=== PATIENT | female | born 1960 ===

== ENCOUNTER 2017-06-22 13:32 | Inpatient (IN) ==
[2017-06-22] MEDS ORDERED: VANCOMYCIN INJ 1,000 MG in SODIUM CHLORIDE 0.9% 250 ML IV STA (15:31)
[2017-06-22] MEDS ORDERED: PIPERACILLIN/TAZOBACTAM 4,500 MG in SODIUM CHLORIDE 0.9% 100 ML IV STA (15:31)
[2017-06-22] MEDS ORDERED: SODIUM CHLORIDE 0.9% 1,000 ML IV STA (15:34)
[2017-06-22 16:01] LABS: Basophils % 0.3 % (0.0-0.8); Eosinophils # 0.2 10*3/uL (0.0-0.87); Eosinophils % 2.6 % (0.00-10.9); Hematocrit 35.5 VOL% (35.7-47.0); Hemoglobin 12.7 GM/DL (12.0-16.0); Immature Granulocytes % 0.4 %; Immature Granulocytes Absolute 0.03 #; Lymphocytes # 1.8 10*3/uL (1.4-4.0); Lymphocytes % 22.7 % (21.3-54.2); Mean Corpuscular HGB Conc 35.8 GM/DL (32-36); Mean Corpuscular Hemoglobin 32 PG (27-34); Mean Corpuscular Volume 90.3 FL (87-102); Mean Platelet Volume 9.5 FL (9.6-12.0); Monocytes # 0.7 10*3/uL (0.11-0.8); Monocytes % 8.3 % (1.7-12.7); Neutrophils # 5.2 10*3/uL (1.4-7.4); Neutrophils % 65.7 % (38.7-73.9); Platelet Count 293 T/CUMM (130-400); Red Blood Count 3.93 MC/CUMM (3.8-5.5); Red Cell Distribution Width 11.8 % (9.3-17.3)
[2017-06-22] MEDS ORDERED: VANCOMYCIN 1,000 MG VIAL ONE (16:11)
[2017-06-22] MEDS ORDERED: PIPERACILLIN/TAZOBACTAM 3,375 MG in SODIUM CHLORIDE 0.9% 100 ML IV STA (16:14)
[2017-06-22 16:16] LABS: Calcium 8.9 MG/DL (8.5-10.1); Osmolality,Calculated 275.8 MOS/KG (273-304); Potassium 3.8 MMOL/L (3.5-5.1)
[2017-06-22] MEDS ORDERED: SODIUM CHLORIDE 0.9% 100 ML IV ONE (16:29)
[2017-06-22] MEDS ORDERED: PIPERACILLIN/TAZOBACTAM 3,375 MG VIAL IV ONE (16:29)
[2017-06-22] MEDS ORDERED: ONDANSETRON 4 MG/2 ML VIAL IV PRN (18:29)
[2017-06-22] MEDS ORDERED: GLUCAGON 1 MG VIAL IM PRN (18:29)
[2017-06-22] MEDS ORDERED: DOCUSATE SODIUM 100 MG CAPSULE PO PRN (18:29)
[2017-06-22] MEDS ORDERED: DEXTROSE 50% 25 GM/50 ML VIAL IV PRN (18:29)
[2017-06-22] MEDS: amLODIPine 5 MG TABLET PO SCH (22:30)
[2017-06-22] MEDS: FERROUS SULFATE 325 MG TABLET PO SCH (22:30)
[2017-06-22] MEDS: INSULIN REGULAR 100 UNIT/ML SUBCUT SCH (22:34)
[2017-06-22] MEDS: SODIUM CHLORIDE 0.9% 1,000 ML IV SCH (22:36)
[2017-06-22] MEDS: hydrALAZINE 25 MG TABLET PO SCH (22:36)
[2017-06-22] MEDS: SIMVASTATIN 20 MG TABLET PO SCH (22:36)
[2017-06-22] MEDS: DICLOFENAC 0.1% BOTH EYES SCH (22:41)
[2017-06-23] MEDS: PIPERACILLIN/TAZOBACTAM 3,375 MG in SODIUM CHLORIDE 0.9% 100 ML IV SCH ×3 (02:16→17:09)
[2017-06-23 05:29] LABS: Basophils % 0.3 % (0.0-0.8); Eosinophils # 0.2 10*3/uL (0.0-0.87); Eosinophils % 3.3 % (0.00-10.9); Hematocrit 30.7 VOL% (35.7-47.0); Immature Granulocytes % 0.4 %; Immature Granulocytes Absolute 0.03 #; Lymphocytes # 2.2 10*3/uL (1.4-4.0); Lymphocytes % 31.9 % (21.3-54.2); Mean Corpuscular HGB Conc 32.9 GM/DL (32-36); Mean Corpuscular Hemoglobin 32 PG (27-34); Mean Corpuscular Volume 95.9 FL (87-102); Mean Platelet Volume 9.8 FL (9.6-12.0); Monocytes # 0.6 10*3/uL (0.11-0.8); Monocytes % 8.5 % (1.7-12.7); Neutrophils # 3.7 10*3/uL (1.4-7.4); Neutrophils % 55.6 % (38.7-73.9); Platelet Count 242 T/CUMM (130-400); White Blood Count 6.7 T/CUMM (4-12)
[2017-06-23 06:13] LABS: Hemoglobin 10.1 GM/DL (12.0-16.0)
[2017-06-23 06:16] LABS: Calcium 8.4 MG/DL (8.5-10.1); Osmolality,Calculated 295.5 MOS/KG (273-304); Potassium 4.2 MMOL/L (3.5-5.1)
[2017-06-23 06:32] LABS: Risk Ratio 5.97; VLDL CHOLESTEROL 38.8 MG/DL
[2017-06-23] MEDS ORDERED: ERYTHROMYCIN ETHYLSUCCINATE PO SCH ×2 (07:30)
[2017-06-23] MEDS ORDERED: ROPIVACAINE 0.5% 30 ML VIAL ONE (08:03)
[2017-06-23] MEDS ORDERED: MIDAZOLAM 2 MG/2 ML VIAL ONE (08:45)
[2017-06-23] MEDS ORDERED: PROPOFOL 200 MG/20 ML VIAL IV ONE (08:45)
[2017-06-23] MEDS ORDERED: fentaNYL 100 MCG/2 ML VIAL ONE (08:45)
[2017-06-23] MEDS: MONTELUKAST 10 MG TABLET PO SCH (09:43)
[2017-06-23] MEDS: DICLOFENAC 0.1% BOTH EYES SCH ×4 (09:43→22:12)
[2017-06-23] MEDS: FLUTICASONE 50 MCG NASAL SPRAY 16 GM BOTTLE BOTH NARES SCH (09:43)
[2017-06-23] MEDS: hydrALAZINE 25 MG TABLET PO SCH ×2 (09:43→22:12)
[2017-06-23] MEDS: INSULIN REGULAR 100 UNIT/ML SUBCUT SCH ×4 (09:52→21:49)
[2017-06-23] MEDS: ERYTHROMYCIN ETHYLSUCCINATE 40 MG/ML 100 ML/BOTTLE PO SCH ×4 (09:52→21:48)
[2017-06-23] MEDS: PANTOPRAZOLE 40 MG TABLET PO SCH (09:52)
[2017-06-23] MEDS: FERROUS SULFATE 325 MG TABLET PO SCH ×2 (09:52→21:49)
[2017-06-23] MEDS: amLODIPine 5 MG TABLET PO SCH ×2 (09:55→21:49)
[2017-06-23] MEDS: INSULIN GLARGINE 100 UNIT/ML SUBCUT SCH (12:08)
[2017-06-23] MEDS: VANCOMYCIN INJ 1,000 MG in SODIUM CHLORIDE 0.9% 250 ML IV SCH (16:08)
[2017-06-23] MEDS ORDERED: ACETAMINOPHEN 325 MG TABLET PO PRN (16:28)
[2017-06-23] MEDS: SIMVASTATIN 20 MG TABLET PO SCH (22:12)
[2017-06-24] MEDS: PIPERACILLIN/TAZOBACTAM 3,375 MG in SODIUM CHLORIDE 0.9% 100 ML IV SCH ×3 (01:39→19:55)
[2017-06-24 05:46] LABS: Basophils % 0.5 % (0.0-0.8); Eosinophils # 0.3 10*3/uL (0.0-0.87); Eosinophils % 5.1 % (0.00-10.9); Hematocrit 30.8 VOL% (35.7-47.0); Hemoglobin 10.7 GM/DL (12.0-16.0); Immature Granulocytes % 0.5 %; Immature Granulocytes Absolute 0.03 #; Lymphocytes # 2.3 10*3/uL (1.4-4.0); Lymphocytes % 37.4 % (21.3-54.2); Mean Corpuscular HGB Conc 34.7 GM/DL (32-36); Mean Corpuscular Hemoglobin 33 PG (27-34); Mean Corpuscular Volume 93.6 FL (87-102); Mean Platelet Volume 9.4 FL (9.6-12.0); Monocytes # 0.6 10*3/uL (0.11-0.8); Monocytes % 9.1 % (1.7-12.7); Neutrophils # 2.9 10*3/uL (1.4-7.4); Neutrophils % 47.4 % (38.7-73.9); Platelet Count 263 T/CUMM (130-400); Red Blood Count 3.29 MC/CUMM (3.8-5.5); White Blood Count 6.1 T/CUMM (4-12)
[2017-06-24 06:09] LABS: Albumin 2.5 G/DL (3.4-5.0); Bilirubin,Total 0.6 MG/DL (0.2-1.0); Calcium 8.1 MG/DL (8.5-10.1); Potassium 3.7 MMOL/L (3.5-5.1); Total Protein 6.3 G/DL (6.4-8.3)
[2017-06-24] MEDS ORDERED: INSULIN ASPART PROTAMINE/ASPART 70/30 100 UNIT/ML SUBCUT SCH (07:30)
[2017-06-24] MEDS: INSULIN REGULAR 100 UNIT/ML SUBCUT SCH (07:39)
[2017-06-24] MEDS: INSULIN LISPRO 100 UNIT/ML SUBCUT SCH ×6 (08:47→20:49)
[2017-06-24] MEDS: ERYTHROMYCIN ETHYLSUCCINATE 40 MG/ML 100 ML/BOTTLE PO SCH ×4 (08:48→20:45)
[2017-06-24] MEDS: INSULIN GLARGINE 100 UNIT/ML SUBCUT SCH (08:48)
[2017-06-24] MEDS: hydrALAZINE 25 MG TABLET PO SCH ×2 (08:49→20:49)
[2017-06-24] MEDS: amLODIPine 5 MG TABLET PO SCH ×2 (08:49→20:45)
[2017-06-24] MEDS: FLUTICASONE 50 MCG NASAL SPRAY 16 GM BOTTLE BOTH NARES SCH (08:49)
[2017-06-24] MEDS: FERROUS SULFATE 325 MG TABLET PO SCH ×2 (08:49→20:45)
[2017-06-24] MEDS: PANTOPRAZOLE 40 MG TABLET PO SCH (08:49)
[2017-06-24] MEDS: MONTELUKAST 10 MG TABLET PO SCH (08:49)
[2017-06-24] MEDS: SODIUM CHLORIDE 0.9% 1,000 ML IV SCH (08:53)
[2017-06-24] MEDS: VANCOMYCIN INJ 1,000 MG in SODIUM CHLORIDE 0.9% 250 ML IV SCH (17:49)
[2017-06-24] MEDS: SIMVASTATIN 20 MG TABLET PO SCH (20:48)
[2017-06-25] MEDS: PIPERACILLIN/TAZOBACTAM 3,375 MG in SODIUM CHLORIDE 0.9% 100 ML IV SCH ×2 (01:26→10:02)
[2017-06-25] MEDS: INSULIN LISPRO 100 UNIT/ML SUBCUT SCH ×4 (07:43→12:39)
[2017-06-25] MEDS: hydrALAZINE 25 MG TABLET PO SCH (09:56)
[2017-06-25] MEDS: PANTOPRAZOLE 40 MG TABLET PO SCH (09:57)
[2017-06-25] MEDS: MONTELUKAST 10 MG TABLET PO SCH (09:57)
[2017-06-25] MEDS: amLODIPine 5 MG TABLET PO SCH (10:00)
[2017-06-25] MEDS: FERROUS SULFATE 325 MG TABLET PO SCH (10:00)
[2017-06-25] MEDS: FLUTICASONE 50 MCG NASAL SPRAY 16 GM BOTTLE BOTH NARES SCH (10:01)
[2017-06-25] MEDS: ERYTHROMYCIN ETHYLSUCCINATE 40 MG/ML 100 ML/BOTTLE PO SCH ×2 (10:02→12:39)
[2017-06-25] MEDS: INSULIN GLARGINE 100 UNIT/ML SUBCUT SCH (10:02)
[2017-06-25 11:32] VITALS: BP 147/70
== END 2017-06-25 15:20 | disposition other institution (70) | DRG 982 ==
LOC: N.ED 13:32 → N.EDINP 16:56 → N.2E 19:09
PROVIDERS: ADMIT Family Medicine; ATTEND Family Medicine